=== PATIENT | female | born 1940 | race African-American/Black ===

== ENCOUNTER 2023-04-19 12:59 | Emergency (ER) | payer OTHER ==
[~2023-04-19] VITALS: Ht 160 cm; Wt 55.3 kg
--- NOTE | 2023-04-19 13:27 | NUR ---
vance, c/o abd pain on and off worst today for months, Hx diverticulitis 10 ps
--- NOTE | 2023-04-19 13:30 | NUR ---
IV LINE 20 G RIGHT FOREARM
--- NOTE | 2023-04-19 13:33 | NUR ---
BLOOD SAMPLE TAKEN SENT TO LAB
--- NOTE | 2023-04-19 13:54 | NUR ---
EMT AT BEDSIDE FOR EKG
--- NOTE | 2023-04-19 13:54 | NUR ---
PT URGE TO PROVIDE URINE LEFT A BEDPAN AT BEDSIDE
[2023-04-19 14:08] LABS: EOSINOPHILS % (AUTO) 2.8 % (0.0-6.0); HEMATOCRIT 39 % (33-45); HEMOGLOBIN 12.5 g/dL (11.5-14.8); LYMPHOCYTES % (AUTO) 44.7 % (20.0-44.0); MEAN CORPUSCULAR HGB CONC 32 g/dl (31.0-36.0); MEAN CORPUSCULAR VOLUME 82 fL (82-100); MONOCYTES # (AUTO) 0.4 K/uL (0.1-1.30); MONOCYTES % (AUTO) 9.9 % (2.0-12.0); NEUTROPHILS # (AUTO) 1.8 K/uL (1.8-8.9); NEUTROPHILS % (AUTO) 41.6 % (43.0-81.0); PLATELET COUNT (AUTO) 277 K/uL (150-450); RED BLOOD CELL COUNT(AUTO) 4.73 MIL/uL (4.0-5.2); WHITE BLOOD COUNT (AUTO) 4.4 K/uL (4.3-11.0)
[2023-04-19 15:13] LABS: CALCIUM, SERUM 9.2 mg/dL (8.5-10.1); CREATININE 0.8 mg/dL (0.6-1.3); POTASSIUM 3.8 mmol/L (3.5-5.1)
[2023-04-19 15:20] LABS: ALBUMIN 3.4 g/dL (3.4-5.0); BILIRUBIN,DIRECT 0.1 mg/dL (0.0-0.2); BILIRUBIN,TOTAL 0.3 mg/dL (0.2-1.0)
--- NOTE | 2023-04-19 15:55 | NUR ---
PT IN AND OUT, URINE COLLECTED, SENT TO LAB
[2023-04-19] MEDS ORDERED: IV NS 0.9% 500 ML BAG IV ONE (16:00)
--- NOTE | 2023-04-19 16:15 | NUR ---
PROVIDED DIAPHER, PER PT REQUEST
[2023-04-19 16:35] LABS: BILIRUBIN,URINE NEGATIVE (NEGATIVE); COLOR,URINE YELLOW (YELLOW); LEUKOCYTE ESTERASE ,URINE NEGATIVE (NEGATIVE); NITRITE, URINE NEGATIVE (NEGATIVE); PROTEIN,URINE NEGATIVE (NEGATIVE); UGLUCOSE NEGATIVE (NEGATIVE); UROBILINOGEN,URINE 0.2 EU/dL (0.2)
[2023-04-19 18:07] VITALS: BP 120/76
== END 2023-04-19 18:07 | disposition home or self-care (01) ==
LOC: ER 13:26
DX: G89.29 Other chronic pain (principal); R10.9 Unspecified abdominal pain; G20 Parkinson's disease; Z88.0 Allergy status to penicillin
CPT/HCPCS: 99284; 74176; 93005; 85025; 80048; 87040 ×2; 83605; 83690; 80076; 81003; 36415; J7040

== ENCOUNTER 2023-04-22 18:02 | Emergency (ER) | payer OTHER ==
[~2023-04-22] VITALS: Ht 165.1 cm; Wt 51.3 kg
--- NOTE | 2023-04-22 18:20 | NUR ---
BIB SON C/O GENERALIZED ABDOMINAL PAIN AND WEAKNESS SINCE YESTERDAY. NO NAUSEA, NO VOMITING, NO DIARRHEA. AMBULATORY, PLACED IN BED, AAOX4, BREATHING EVEN AND UNLABORED SATURATING AT 98%RA.
--- NOTE | 2023-04-22 18:25 | NUR ---
AT BEDSIDE FOR EVAL
[2023-04-22] MEDS ORDERED: METO-295 PO (18:51)
[2023-04-22] MEDS ORDERED: HYDROCODONE/APAP 5/325MG TABLET PO ONE (19:00)
[2023-04-22] MEDS ORDERED: METOCLOPRAMIDE HCL 10 MG TABLET PO ONE (19:00)
[2023-04-22] MEDS ORDERED: METOCLOPRAMIDE HCL 10 MG TABLET ONE (19:02)
[2023-04-22] MEDS ORDERED: HYDROCODONE/APAP 5/325MG TABLET ONE (19:02)
--- NOTE | 2023-04-22 19:15 | NUR ---
Patient discharged to home in stable condition. Written and verbal after care instructions given. SON verbalizes understanding of instruction.
[2023-04-22 19:20] VITALS: BP 125/73
== END 2023-04-22 19:15 | disposition home or self-care (01) ==
LOC: ER 18:04
DX: G89.29 Other chronic pain (principal); R10.84 Generalized abdominal pain; G20 Parkinson's disease; Z88.0 Allergy status to penicillin
CPT/HCPCS: 99283; J8597

== ENCOUNTER 2023-05-31 18:56 | Emergency (ER) | payer OTHER ==
[~2023-05-31] VITALS: Ht 167.6 cm; Wt 51.3 kg
[~2023-05-31 18:56] MED LIST: METO-295 PO
[2023-05-31 21:34] VITALS: TEMP 98.2
--- NOTE | 2023-05-31 21:39 | NUR ---
PRESENTED TO THE ER W/ C/O GENERALIZED BODY PAIN FOR A MONTH. PT WAS PLACED IN BED 4 ER ON MONITOR.
[2023-05-31] MEDS ORDERED: MORPHINE SULFATE INJ 2 MG/ML DISP.SYRIN IV ONE (22:00)
[2023-05-31] MEDS ORDERED: IV NS 0.9% 500 ML BAG IV ONE (22:00)
[2023-05-31] MEDS ORDERED: ONDANSETRON HCL/PF 4 MG/2 ML VIAL IVP ONE (22:00)
--- NOTE | 2023-05-31 22:02 | NUR ---
SANJAY, GARDENACUS: [phone]
[2023-05-31] MEDS ORDERED: ONDANSETRON HCL/PF 4 MG/2 ML VIAL ONE (22:14)
[2023-05-31] MEDS ORDERED: MORPHINE SULFATE INJ 2 MG/ML DISP.SYRIN ONE (22:15)
[2023-05-31 22:24] LABS: BASOPHILS # (AUTO) 0.1 K/uL (0.0-0.2); BASOPHILS % (AUTO) 1.4 % (0.0-2.0); EOSINOPHILS % (AUTO) 2.5 % (0.0-6.0); HEMATOCRIT 39 % (33-45); HEMOGLOBIN 12.6 g/dL (11.5-14.8); LYMPHOCYTES # (AUTO) 2.4 K/uL (0.8-4.8); LYMPHOCYTES % (AUTO) 49.8 % (20.0-44.0); MEAN CORPUSCULAR HGB CONC 33 g/dl (31.0-36.0); MEAN CORPUSCULAR VOLUME 82 fL (82-100); MONOCYTES # (AUTO) 0.5 K/uL (0.1-1.30); MONOCYTES % (AUTO) 10.4 % (2.0-12.0); NEUTROPHILS # (AUTO) 1.7 K/uL (1.8-8.9); NEUTROPHILS % (AUTO) 35.9 % (43.0-81.0); PLATELET COUNT (AUTO) 245 K/uL (150-450); RED BLOOD CELL COUNT(AUTO) 4.77 MIL/uL (4.0-5.2); WHITE BLOOD COUNT (AUTO) 4.7 K/uL (4.3-11.0)
[2023-05-31 22:37] LABS: CALCIUM, SERUM 9.5 mg/dL (8.5-10.1); CREATININE 0.8 mg/dL (0.6-1.3); POTASSIUM 4.1 mmol/L (3.5-5.1)
[2023-05-31 22:39] LABS: BILIRUBIN,URINE NEGATIVE (NEGATIVE); COLOR,URINE YELLOW (YELLOW); LEUKOCYTE ESTERASE ,URINE 1+ (NEGATIVE); NITRITE, URINE NEGATIVE (NEGATIVE); PH,URINE 6.5 (5.0-8.0); PROTEIN,URINE NEGATIVE (NEGATIVE); UGLUCOSE NEGATIVE (NEGATIVE); UROBILINOGEN,URINE 0.2 EU/dL (0.2)
--- NOTE | 2023-05-31 22:43 | NUR ---
BEING TRTANSFERRED TO CT
[2023-05-31 22:44] LABS: BILIRUBIN,DIRECT 0.1 mg/dL (0.0-0.2); BILIRUBIN,TOTAL 0.4 mg/dL (0.2-1.0); TOTAL PROTEIN, SERUM 7.4 g/dL (6.4-8.2)
[2023-05-31 22:51] LABS: ALBUMIN 3.8 g/dL (3.4-5.0)
--- NOTE | 2023-05-31 22:51 | NUR ---
IV NS STARTED 2218 END TIME 2248
[2023-05-31 22:54] LABS: BACTERIA,URINE 1+ /HPF (None Seen); CALCIUM OXALATE CRYSTALS,UR Few /HPF (None Seen); RBC,URINE 0-2 /HPF (0-2)
[2023-05-31] MEDS ORDERED: NITROFURANTOIN/MONOHYDRATE MACROCRYSTALS 100 MG CAPSULE PO ONE (23:30)
[2023-05-31] MEDS ORDERED: NITROFURANTOIN/MONOHYDRATE MACROCRYSTALS 100 MG CAPSULE ONE (23:52)
[2023-06-01] MEDS ORDERED: NITR100C6 PO (01:18)
--- NOTE | 2023-06-01 01:22 | NUR ---
CALLED PATIENT'S SON, YESENIA, TO PICK HIM UP
--- NOTE | 2023-06-01 02:09 | NUR ---
IV removed. Catheter intact and site benign. Pressure and 4x4 applied to site. No bleeding noted.Patient discharged to home in stable condition. Written and verbal after care instructions given. Patient verbalizes understanding of instruction.
[2023-06-01 02:31] VITALS: BP 155/94; O2SAT 100
[2023-06-04] MEDS ORDERED: TYL2T PO (02:03)
[2023-06-04] MEDS ORDERED: NITR100C PO (02:03)
== END 2023-06-01 02:31 | disposition home or self-care (01) ==
LOC: ER 18:58
DX: G89.29 Other chronic pain (principal); R10.30 Lower abdominal pain, unspecified; N39.0 Urinary tract infection, site not specified; K59.00 Constipation, unspecified; D25.9 Leiomyoma of uterus, unspecified; G20 Parkinson's disease; Z88.0 Allergy status to penicillin
CPT/HCPCS: 99285; 74176; 96374; 96375; 85025; 80048; 87086; 83690; 80076; 81001; 36415; 85730; J2405; J7040; J2270

== ENCOUNTER 2023-06-27 10:46 | Emergency (ER) | payer OTHER ==
[~2023-06-27] VITALS: Ht 162.6 cm; Wt 49.9 kg
[~2023-06-27 10:46] MED LIST changes: +NITR100C6 PO; +TYL2T PO
[2023-06-27] MEDS ORDERED: IV NS 0.9% 500 ML BAG IV ONE (11:30)
[2023-06-27 11:46] LABS: EOSINOPHILS # (AUTO) 0.1 K/uL (0.0-0.7); EOSINOPHILS % (AUTO) 3.3 % (0.0-6.0); HEMATOCRIT 39 % (33-45); HEMOGLOBIN 12.9 g/dL (11.5-14.8); LYMPHOCYTES % (AUTO) 42.8 % (20.0-44.0); MEAN CORPUSCULAR HEMOGLOBIN 27 PG (26.0-33.0); MEAN CORPUSCULAR HGB CONC 33 g/dl (31.0-36.0); MEAN CORPUSCULAR VOLUME 81 fL (82-100); MONOCYTES # (AUTO) 0.5 K/uL (0.1-1.30); MONOCYTES % (AUTO) 10.7 % (2.0-12.0); NEUTROPHILS # (AUTO) 1.9 K/uL (1.8-8.9); NEUTROPHILS % (AUTO) 42.2 % (43.0-81.0); PLATELET COUNT (AUTO) 281 K/uL (150-450); RED BLOOD CELL COUNT(AUTO) 4.88 MIL/uL (4.0-5.2); RED CELL DISTRIBUTION WIDTH 14.9 % (11.5-15.0); WHITE BLOOD COUNT (AUTO) 4.6 K/uL (4.3-11.0)
[2023-06-27 12:10] LABS: APPEARANCE,URINE CLEAR (CLEAR); BILIRUBIN,URINE NEGATIVE (NEGATIVE); BLOOD, URINE NEGATIVE Ery/uL (NEGATIVE); COLOR,URINE YELLOW (YELLOW); KETONES,URINE NEGATIVE (NEGATIVE); LEUKOCYTE ESTERASE ,URINE TRACE (NEGATIVE); NITRITE, URINE NEGATIVE (NEGATIVE); PROTEIN,URINE NEGATIVE (NEGATIVE); UGLUCOSE NEGATIVE (NEGATIVE); UROBILINOGEN,URINE 0.2 EU/dL (0.2)
[2023-06-27 12:12] LABS: ADD URINE CULTURE YES; BACTERIA,URINE Rare /HPF (None Seen); RBC,URINE 0-2 /HPF (0-2); SQUAMOUS EPITHELIAL CELL,UR Few /HPF (None Seen)
[2023-06-27 12:18] LABS: ALANINE AMINOTRANSFERASE 10 U/L (12-78); ALKALINE PHOSPHATASE 93 U/L (46-116); ASPARTATE AMINOTRANSFERASE 17 U/L (15-37); BILIRUBIN,DIRECT 0.1 mg/dL (0.0-0.2); BILIRUBIN,TOTAL 0.4 mg/dL (0.2-1.0); CALCIUM, SERUM 9.5 mg/dL (8.5-10.1); CARBON DIOXIDE 32 mmol/L (21-32); CHLORIDE 104 mmol/L (98-107); CREATININE 0.7 mg/dL (0.6-1.3); GLUCOSE 126 mg/dL (74-106); POTASSIUM 3.9 mmol/L (3.5-5.1); SODIUM SERUM 142 mmol/L (136-145); TOTAL PROTEIN, SERUM 8.1 g/dL (6.4-8.2); UREA NITROGEN, BLOOD 6 mg/dL (7-18)
[2023-06-27] MEDS ORDERED: CEPH500C2 PO (12:57)
[2023-06-27] MEDS ORDERED: IBUP-1953 PO (12:57)
[2023-06-27] MEDS ORDERED: CEFTRIAXONE 1GM BAG (ER ONLY) 50 ML IV ONE (13:00)
[2023-06-27] MEDS ORDERED: CEFTRIAXONE 1 G in IV D5W 50 ML IV ONE (13:00)
[2023-06-27 14:32] VITALS: BP 142/82; TEMP 98.6; O2SAT 99
== END 2023-06-27 14:32 | disposition home or self-care (01) ==
LOC: ER 10:50
DX: N81.0 Urethrocele (principal); N39.0 Urinary tract infection, site not specified; R53.83 Other fatigue; R53.1 Weakness; R39.198 Other difficulties with micturition; G20 Parkinson's disease; Z88.0 Allergy status to penicillin; Z79.899 Other long term (current) drug therapy
CPT/HCPCS: 99285; 96365; 71045; 96361; 93005; 85025; 80048; 87086; 80076; 81001; 36415; 84484; 83880; J7040; J0696

== ENCOUNTER 2025-06-05 06:19 | Emergency (ER) | payer OTHER ==
[~2025-06-05] VITALS: Ht 165.1 cm; Wt 48.1 kg
[~2025-06-05 06:19] MED LIST changes: +CEPH500C2 PO; +IBUP-1953 PO
[2025-06-05] MEDS: IV NS 0.9% 1,000 ML BAG IV ONE (06:42)
[2025-06-05 07:13] LABS: PLATELET COUNT (AUTO) 259 K/uL (150-450); RED BLOOD CELL COUNT(AUTO) 4.85 MIL/uL (4.0-5.2); RED CELL DISTRIBUTION WIDTH 15.4 % (11.5-15.0); WHITE BLOOD COUNT (AUTO) 4.0 K/uL (4.3-11.0)
[2025-06-05 07:18] LABS: CALCIUM, SERUM 9.6 mg/dL (8.5-10.1); CREATININE 0.6 mg/dL (0.6-1.3); SODIUM SERUM 142.0 mmol/L (136-145); UREA NITROGEN, BLOOD 18.0 mg/dL (7-18)
[2025-06-05 07:24] LABS: ASPARTATE AMINOTRANSFERASE 21.0 U/L (15-37); TOTAL PROTEIN, SERUM 8.3 g/dL (6.4-8.2)
[2025-06-05 07:27] LABS: LACTIC ACID 1.3 mmol/L (0.4-2.0)
[2025-06-05 08:51] LABS: APPEARANCE,URINE CLEAR (CLEAR); BLOOD, URINE NEGATIVE Ery/uL (NEGATIVE); LEUKOCYTE ESTERASE ,URINE 1+ (NEGATIVE); NITRITE, URINE NEGATIVE (NEGATIVE); UGLUCOSE NEGATIVE (NEGATIVE)
[2025-06-05 09:04] LABS: ADD URINE CULTURE YES
[2025-06-05] MEDS: CEFTRIAXONE 1 G in IV D5W 50 ML IV ONE (09:30)
[2025-06-05] MEDS ORDERED: KETOROLAC TROMETHAMINE 15 MG/ML VIAL ONE (09:58)
[2025-06-05] MEDS ORDERED: CEFTRIAXONE 1GM BAG (ER ONLY) 50 ML IV ONE (09:59)
[2025-06-05] MEDS: KETOROLAC TROMETHAMINE 15 MG/ML VIAL IV ONE (10:00)
[2025-06-05 12:12] VITALS: BP 138/80; TEMP 98.2; O2SAT 99
== END 2025-06-05 12:13 | disposition short-term general hospital (02) ==
LOC: ER 06:23
DX: R55 Syncope and collapse (principal); R53.1 Weakness; N39.0 Urinary tract infection, site not specified; K59.00 Constipation, unspecified; D25.9 Leiomyoma of uterus, unspecified; G89.29 Other chronic pain; G20.A1 Parkinson's disease without dyskinesia, without mention of fluctuations; E86.0 Dehydration; Z86.018 Personal history of other benign neoplasm; Z88.0 Allergy status to penicillin; Z79.899 Other long term (current) drug therapy
CPT/HCPCS: 99285; 74176; 96365; 71045; 96361; 96375; 93005; 85025; 80048; 87040 ×2; 87086; 83605; 83690; 80076; 81001; 36415; 84484; J1885; J7030; J0696; J7060